=== PATIENT | male | born 1975 | race Caucasian/White ===

== ENCOUNTER 2018-10-05 08:09 | Emergency (ER) | payer OTHER ==
[~2018-10-05] VITALS: Ht 180.3 cm; Wt 100.2 kg
[2018-10-05] MEDS ORDERED: IV NORMAL SALINE 1,000ML 1,000 ML IV SCH (08:46)
[2018-10-05] MEDS ORDERED: OMEP40CA5 PO (09:00)
[2018-10-05] MEDS ORDERED: FENO145T30 PO (09:01)
[2018-10-05 09:02] LABS: BASO # 0.1 x10^3/uL (0.0-0.2); BASO % 1 % (0-3); EOS # 0.2 x10^3/uL (0.0-0.7); EOS % 2 % (0-3); HEMATOCRIT 46.8 % (39.0-53.0); HEMOGLOBIN 16.5 g/dL (13.0-17.5); LYMPH # 1.4 x10^3/uL (1.0-4.8); LYMPH % 16 % (24-48); MEAN CORPUSCULAR HEMOGLOBIN 34 pg (25-35); MEAN CORPUSCULAR HGB CONC 35 g/dL (31-37); MEAN CORPUSCULAR VOLUME 97 fL (79-100); MONO % 11 % (0-9); NEUT # 5.9 x10^3uL (1.8-7.7); NEUT % 69 % (31-73); PLATELET COUNT 299 x10^3/uL (140-400); RED BLOOD COUNT 4.82 x10^6/uL (4.30-5.70); RED CELL DISTRIBUTION WIDTH 12.3 % (11.5-14.5); WHITE BLOOD COUNT 8.5 x10^3/uL (4.0-11.0)
[2018-10-05 09:20] LABS: ALBUMIN 4.3 g/dL (3.4-5.0); ALBUMIN/GLOBULIN RATIO 1.1 (1.0-1.7); CALCIUM 10.7 mg/dL (8.5-10.1); CREATININE 1.3 mg/dL (0.7-1.3); GFR 60.5; POTASSIUM 3.6 mmol/L (3.5-5.1); TOTAL BILIRUBIN 0.5 mg/dL (0.2-1.0); TOTAL PROTEIN 8.3 g/dL (6.4-8.2)
[2018-10-05 09:29] LABS: BACTERIA,URINE 0 /HPF (0-FEW); BILIRUBIN,URINE NEG (NEG); CLARITY,URINE CLEAR; COLOR,URINE YELLOW; GLUCOSE,URINE NEG (NEG); NITRITE,URINE NEG (NEG); RBC,URINE 0 /HPF (0-2); SQUAMOUS EPITHELIAL CELL,UR OCC /LPF; UROBILINOGEN,URINE 0.2 mg/dL (0.2 mg/dL); WBC,URINE 0 /HPF (0-4)
[2018-10-05] MEDS ORDERED: IOHEXOL 240 MG/ML 50ML VIAL. PO ONE (09:45)
[2018-10-05] MEDS ORDERED: PANTOPRAZOLE IV 40 MG VIAL. IVP ONE (09:45)
[2018-10-05] MEDS ORDERED: KETOROLAC 30 MG/ML VIAL. IV ONE (09:45)
[2018-10-05] MEDS ORDERED: IOHEXOL 300 MG/ML 75 ML VIAL. IV ONE (09:45)
[2018-10-05 10:28] LABS: FECAL OB PT NEGATIVE (NEG)
--- NOTE | 2018-10-05 10:40 | RAD ---
PQRS Compliance Statement: One or more of the following individualized dose reduction techniques were utilized for this examination: 1. Automated exposure control 2. Adjustment of the mA and/or kV according to patient size 3. Use of iterative reconstruction technique CT abdomen/pelvis with contrast 10/05/2018 10:02 AM INDICATION: Right lower quadrant abdominal pain COMPARISON: None available TECHNIQUE: Multiple axial CT images of the abdomen and pelvis were obtained after the intravenous administration of 75 mL Omnipaque 300. Coronal and sagittal reformats are provided. FINDINGS: Lung bases are clear. Heart size within normal limits. Liver, spleen, bilateral adrenal glands and pancreas are normal in appearance. Gallbladder is contracted limiting evaluation. The abdominal aorta is normal in course and caliber. There are no pathologically enlarged lymph nodes in the abdomen and pelvis. There is no abdominal free fluid. There is no free intraperitoneal air. The kidneys enhance symmetrically. There is no suspicious renal mass. There is no hydronephrosis. There are no suspected calculi within the kidneys, ureters or urinary bladder. The appendix is not definitively visualized. No pericecal inflammatory changes are identified. Urinary bladder is within normal limits given degree of distention. Prostate and seminal vesicles are normal in appearance. IMPRESSION: No acute abnormality is identified in the abdomen and pelvis. The appendix appears surgically absent. Electronically signed by: Renate Burnette MD (10/05/2018 10:37 AM) [facility]
[2018-10-05] MEDS ORDERED: HYDR-3165 PO (11:44)
--- NOTE | 2018-10-05 11:44 | PHYS DOC ---
Past History Past Medical History: GERD, High Cholesterol, Hypertension Past Surgical History: Appendectomy Alcohol Use: Occasionally Drug Use: None Adult General Chief Complaint Chief Complaint: ABDOMINAL PAIN HPI HPI Patient is a 42 year old male who presents with complaining of abdominal pain. Patient complaining of intermittent episodes of upper abdominal pressure pain that started 5 days ago and gradually became more severe and constant. Patient complaining of multiple episodes of diarrhea since last night with or injury/ red color of stool with increasing pain and rated his pain 8/10. Patient denies fever and chills, nausea and vomiting, urinary symptom. Patient complaining of anorexia for the last couple days. Patient did not have sick contact and history of the same problem. Review of Systems Review of Systems Constitutional: Denies fever or chills [] Eyes: Denies change in visual acuity, redness, or eye pain [] HENT: Denies nasal congestion or sore throat [] Respiratory: Denies cough or shortness of breath [] Cardiovascular: No additional information not addressed in HPI [] GI: Reports abdominal pain, bloody stools or diarrhea [] : Denies dysuria or hematuria [] Musculoskeletal: Denies back pain or joint pain [] Integument: Denies rash or skin lesions [] Neurologic: Denies headache, focal weakness or sensory changes [] Endocrine: Denies polyuria or polydipsia [] All other systems were reviewed and found to be within normal limits, except as documented in this note. Current Medications Current Medications Current Medications Medications (Trade) Dose Ordered Sig/Oj Start Time Stop Time Status Last Admin Dose Admin Iohexol (Omnipaque 240 Mg/ml) 50 ml 1X ONCE 10/05/18 09:45 10/05/18 09:46 DC 10/05/18 10:21 50 ML Iohexol (Omnipaque 300 Mg/ml) 75 ml 1X ONCE 10/05/18 09:45 10/05/18 09:46 DC 10/05/18 10:21 75 ML Ketorolac Tromethamine (Toradol 30mg Vial) 30 mg 1X ONCE 10/05/18 09:45 10/05/18 09:46 DC 10/05/18 09:57 30 MG Pantoprazole Sodium (Protonix Vial) 40 mg 1X ONCE 10/05/18 09:45 10/05/18 09:46 DC 10/05/18 09:58 40 MG Sodium Chloride 1,000 ml @ 1,000 mls/hr Q1H 10/05/18 08:46 10/05/18 09:45 DC 10/05/18 09:01 1,000 MLS/HR Allergies Allergies Allergies Coded Allergies Type Severity Reaction Last Updated Verified caffeine Allergy Unknown 10/05/18 Yes cat dander Allergy Unknown 10/05/18 Yes ragweed pollen Allergy Unknown 10/05/18 Yes Physical Exam Physical Exam Constitutional: Well developed, well nourished, no acute distress, non-toxic appearance. [] HENT: Normocephalic, atraumatic, bilateral external ears normal, oropharynx moist, no oral exudates, nose normal. [] Eyes: PERRLA, EOMI, conjunctiva normal, no discharge. [] Neck: Normal range of motion, no tenderness, supple, no stridor. [] Cardiovascular:Heart rate regular rhythm, no murmur [] Lungs & Thorax: Bilateral breath sounds clear to auscultation [] Abdomen: Bowel sounds normal, soft, no tenderness, no masses, no pulsatile masses. 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 [] Back: No tenderness, no CVA tenderness. [] Extremities: No tenderness, no cyanosis, no clubbing, ROM intact, no edema. [] Neurologic: Alert and oriented X 3, normal motor function, normal sensory function, no focal deficits noted. [] Psychologic: Affect normal, judgement normal, mood normal. [] Current Patient Data Vital Signs Vital Signs Date Time Temp Pulse Resp B/P (MAP) Pulse Ox O2 Delivery O2 Flow Rate FiO2 10/05/18 08:27 98.5 87 18 98 Room Air Lab Results Laboratory Tests Test 10/05/18 08:42 10/05/18 09:05 10/05/18 10:11 White Blood Count 8.5 x10^3/uL (4.0-11.0) Red Blood Count 4.82 x10^6/uL (4.30-5.70) Hemoglobin 16.5 g/dL (13.0-17.5) Hematocrit 46.8 % (39.0-53.0) Mean Corpuscular Volume 97 fL (79-100) Mean Corpuscular Hemoglobin 34 pg (25-35) Mean Corpuscular Hemoglobin Concent 35 g/dL (31-37) Red Cell Distribution Width 12.3 % (11.5-14.5) Platelet Count 299 x10^3/uL (140-400) Neutrophils (%) (Auto) 69 % (31-73) Lymphocytes (%) (Auto) 16 % (24-48) L Monocytes (%) (Auto) 11 % (0-9) H Eosinophils (%) (Auto) 2 % (0-3) Basophils (%) (Auto) 1 % (0-3) Neutrophils # (Auto) 5.9 x10^3uL (1.8-7.7) Lymphocytes # (Auto) 1.4 x10^3/uL (1.0-4.8) Monocytes # (Auto) 1.0 x10^3/uL (0.0-1.1) Eosinophils # (Auto) 0.2 x10^3/uL (0.0-0.7) Basophils # (Auto) 0.1 x10^3/uL (0.0-0.2) Prothrombin Time 10.0 SEC (9.4-11.4) Prothrombin Time INR 1.0 (0.9-1.1) Sodium Level 140 mmol/L (136-145) Potassium Level 3.6 mmol/L (3.5-5.1) Chloride Level 101 mmol/L (98-107) Carbon Dioxide Level 26 mmol/L (21-32) Anion Gap 13 (6-14) Blood Urea Nitrogen 16 mg/dL (8-26) Creatinine 1.3 mg/dL (0.7-1.3) Estimated GFR (Cockcroft-Gault) 60.5 BUN/Creatinine Ratio 12 (6-20) Glucose Level 109 mg/dL (70-99) H Calcium Level 10.7 mg/dL (8.5-10.1) H Total Bilirubin 0.5 mg/dL (0.2-1.0) Aspartate Amino Transferase (AST) 26 U/L (15-37) Alanine Aminotransferase (ALT) 36 U/L (16-63) Alkaline Phosphatase 55 U/L (46-116) Troponin I Quantitative < 0.017 ng/mL (0-0.055) Total Protein 8.3 g/dL (6.4-8.2) H Albumin 4.3 g/dL (3.4-5.0) Albumin/Globulin Ratio 1.1 (1.0-1.7) Lipase 140 U/L (73-393) Urine Collection Type Unknown Urine Color Yellow Urine Clarity Clear Urine pH 6.0 Urine Specific [place] <=1.005 Urine Protein Neg (NEG-TRACE) Urine Glucose (UA) Neg mg/dL (NEG) Urine Ketones (Stick) Neg mg/dL (NEG) Urine Blood Neg (NEG) Urine Nitrite Neg (NEG) Urine Bilirubin Neg (NEG) Urine Urobilinogen Dipstick 0.2 mg/dL (0.2 mg/dL) Urine Leukocyte Esterase Neg (NEG) Urine RBC 0 /HPF (0-2) Urine WBC 0 /HPF (0-4) Urine Squamous Epithelial Cells Occ /LPF Urine Bacteria 0 /HPF (0-FEW) Stool Occult Blood Negative (NEG) EKG EKG [] Radiology/Procedures Radiology/Procedures [address] [address] IMAGING REPORT Signed PATIENT: MUNIRA MARTINEZ ACCOUNT: [id number] : 1975 LOCATION: ER AGE: 42 SEX: M EXAM STATUS: REG ER ORD. PHYSICIAN: JUANITA MEADOWS MD REASON: abdominal pain PROCEDURE: CT ABD PELV W/ORAL&IV CONTRAST PQRS Compliance Statement: One or more of the following individualized dose reduction techniques were utilized for this examination: 1. Automated exposure control 2. Adjustment of the mA and/or kV according to patient size 3. Use of iterative reconstruction technique CT abdomen/pelvis with contrast 10/05/2018 10:02 AM INDICATION: Right lower quadrant abdominal pain COMPARISON: None available TECHNIQUE: Multiple axial CT images of the abdomen and pelvis were obtained after the intravenous administration of 75 mL Omnipaque 300. Coronal and sagittal reformats are provided. FINDINGS: Lung bases are clear. Heart size within normal limits. Liver, spleen, bilateral adrenal glands and pancreas are normal in appearance. Gallbladder is contracted limiting evaluation. The abdominal aorta is normal in course and caliber. There are no pathologically enlarged lymph nodes in the abdomen and pelvis. There is no abdominal free fluid. There is no free intraperitoneal air. The kidneys enhance symmetrically. There is no suspicious renal mass. There is no hydronephrosis. There are no suspected calculi within the kidneys, ureters or urinary bladder. The appendix is not definitively visualized. No pericecal inflammatory changes are identified. Urinary bladder is within normal limits given degree of distention. Prostate and seminal vesicles are normal in appearance. IMPRESSION: No acute abnormality is identified in the abdomen and pelvis. The appendix appears surgically absent. Electronically signed by: Willi Burnette MD (10/05/2018 10:37 AM) [facility] DICTATED AND SIGNED BY: WILLI BURNETTE MD DATE: 10/05/18 1037 CC: JUANITA MEADOWS MD; PCP,NO ~ Course & Med Decision Making Course & Med Decision Making Pertinent Labs and Imaging studies reviewed. (See chart for details) Evaluation of patient in ER showed 42-year-old male patient with complaining of intermittent episodes of abdominal pain for 5 days and constant abdominal pain and diarrhea since yesterday. Patient had unremarkable physical exam and labs except for very mild elevation of calcium. CT of abdomen and pelvis did not show acute abnormalities. She felt better with treatment with IV fluid and Toradol in ER. Patient did not have any bowel movement several hours prior to arrival to ER. Patient was advised about test results and plan of care. Dragon Disclaimer Dragon Disclaimer This electronic medical record was generated, in whole or in part, using a voice recognition dictation system. Departure Departure: Impression: Primary Impression: Abdominal pain Additional Impression: Viral diarrhea Disposition: HOME, SELF-CARE (at 1143) Condition: IMPROVED Referrals: PCP,NO (PCP) Patient Instructions: Abdominal Pain, Diarrhea, Diarrhea, [id number] Additional Instructions: Drink plenty of liquids Follow-up with your primary care physician in 2-3 days Return to ER if not getting better Scripts Hydrocodone Bit/Acetaminophen (NORCO 5-325 TABLET) 1 Each Tablet 1 TAB PO PRN Q6HRS PRN for PAIN, #14 TAB 0 Refills Prov: JUANITA MEADOWS MD 10/05/18 Problem Qualifiers Primary Impression: Abdominal pain Abdominal location: epigastric Qualified Codes: R10.13 - Epigastric pain JUANITA MEADOWS MD Oct 05, 2018 11:44
[2018-10-05 12:03] VITALS: BP 154/108
== END 2018-10-05 12:03 | disposition home or self-care (01) ==
LOC: ER 08:09
DX: A08.4 Viral intestinal infection, unspecified (principal); R10.13 Epigastric pain; R19.7 Diarrhea, unspecified; K21.9 Gastro-esophageal reflux disease without esophagitis; E78.00 Pure hypercholesterolemia, unspecified; I10 Essential (primary) hypertension; Z90.89 Acquired absence of other organs; Z88.5 Allergy status to narcotic agent; Z91.048 Other nonmedicinal substance allergy status
CPT/HCPCS: 36415; 74177; 80053; 81001; 82274; 83690; 84484; 85025; 85610; 96361; 96374; 96375; 99284; C9113; J1885; Q9966; Q9967; J7030